=== PATIENT | male | born 2000 | race Caucasian/White ===

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

== ENCOUNTER → 2022-03-21 15:41 | Outpatient (CLI) | payer BC, SELFPAY ==
--- NOTE | ~2022-03-21 | XR_ITS ---
EXAMINATION: XR humerus LT, XR elbow LT min 3V, XR forearm LT 2V DATE: 03/21/2022 16:08 INDICATION: Left arm pain post falling hockey TECHNIQUE: 1. Internal and externally rotated views of the left humerus were obtained. 2. Anteroposterior, two oblique and lateral views of the left elbow were obtained. 3. Anteroposterior and lateral views of the left forearm were obtained. COMPARISON: None. FINDINGS: Alignment is normal from the left shoulder through the carpus the left hand. Subtle angulation of the cortex at the proximal left radial head neck junction suspicious for nondisplaced fracture. Joint sp aces are normal. No left elbow joint effusion. Soft tissues are unremarkable. IMPRESSION: 1. Likely nondisplaced extra articular fracture with subtle angulation of the cortex at the left radi al head neck junction. Reviewed, dictated and finalized at location A. IMPRESSION: 1. Likely nondisplaced extra articular fracture with subtle angulation of the c ortex at the left radial head neck junction. IMPRESSION: 1. Likely nondisplaced extra articular fracture with subtle angulation of the c ortex at the left radial head neck junction.
--- NOTE | ~2022-03-21 | XR_ITS ---
EXAMINATION: XR elbow RT min 3V DATE: 03/21/2022 16:08 INDICATION: Right elbow pain after falling on ice during hockey. TECHNIQUE: Anteroposterior, two oblique and lateral views of the right elbow were obtained. COMPARISON: Contralateral radiographs of the left elbow FINDINGS: Alignment is normal. Joint spaces are normal. As on the left there is subtle angulation of the cortex at the right radial head neck junction suspicious for nondisplaced fracture. No right elbow joint ef fusion. Soft tissues are unremarkable. IMPRESSION: 1. Suspicion for nondisplaced extra articular fracture at the right radial head neck junction where t here is subtle cortical angulation. Reviewed, dictated and finalized at location A. IMPRESSION: 1. Suspicion for nondisplaced extra articular fracture at the right radial head neck junction where there is subtle cortical angulation.
--- NOTE | ~2022-03-21 | XR_ITS ---
EXAMINATION: XR foot LT min 3V DATE: 03/21/2022 16:08 INDICATION: Left foot pain post injury TECHNIQUE: Dorsoplantar, two oblique and lateral views of the left foot were obtained. COMPARISON: None. FINDINGS: Alignment is normal. No fracture. Joint spaces are normal. Soft tissues are unremarkable. IMPRESSION: 1. Negative left foot radiographs. Reviewed, dictated and finalized at location A.
== END ==
PROVIDERS: PCP Nurse Practitioner Family; Visit Provider Nurse Practitioner Family
DX: M79.602 Pain in left arm (principal); M25.521 Pain in right elbow; R93.6 Abnormal findings on diagnostic imaging of limbs
CPT/HCPCS: 73060; 73080; 73090; 73630

== ENCOUNTER 2022-07-18 10:55 | Emergency (ER) | payer BC, SELFPAY ==
[2022-07-18 11:04] VITALS: BP 140/123; PULSE 99; RESP 18; TEMP 37.9; O2SAT 99
--- NOTE | 2022-07-18 11:04 | ED.URI ---
HPI - URI/Sore Throat General Chief Complaint: Upper Respiratory Infection Stated Complaint: sore throat, congestion,headache,bodyache Time Seen by Provider: 07/18/22 11:55 Source: patient and RN notes reviewed Mode of arrival: ambulatory Limitations: no limitations History of Present Illness HPI Narrative: 21-year-old male presents with concern for body aches, head congestion, headache, cough, back pain from coughing that started yesterday. He reports history of asthma, he just refilled his inhalers. He has not felt the need to use his inhaler. He denies taking any other [id number] medications MD elicited complaint: cough, rhinorrhea and nasal congestion Related Data Allergies Allergy/AdvReac Type Severity Reaction Status Date / Time Penicillins Allergy Unknown HIVES Verified 07/18/22 11:10 Review of Systems Review of Systems: CONSTITUTIONAL: Reports malaise, possible fever. EYES: Denies visual changes, redness, or discharge. ENT: Reports rhinorrhea, congestion, sinus pain. Denies otalgia and sore throat. CARDIOVASCULAR: Denies chest pain, palpitations, or edema. RESPIRATORY: Reports cough. Denies dyspnea. GASTROINTESTINAL: Denies abdominal pain, nausea, vomiting, diarrhea SKIN: Denies rash or itching. MUSCULOSKELETAL: Reports myalgia. NEUROLOGIC: Reports headache. All systems reviewed & are unremarkable except as noted in HPI and below PMFSH Past Medical History Medical History (Updated 07/18/22 @ 12:11 by Lachelle Oviedo NP) Asthma Clostridioides difficile infection At the age of 15 related to antibiotics Finger fracture, left Phone Fracture of elbow, closed Left Fracture of phalanx of right little finger History of torn meniscus of right knee Surgical History Surgical History History of colonoscopy History of endoscopy History of right knee surgery Due to torn meniscus-03/2019 Hx of myringotomy Family History Family History Father Elevated cholesterol Other Hypertension Social History Social History Smoking status: Never smoker Tobacco type: cigarettes Second hand tobacco smoke exposure: No Alcohol intake: never Substance use: never Living arrangements: with family Additional living arrangements comments: Parent Occupation/Education: student Gender identity (if verbalized by the patient): Male Sexual Orientation (if Verbalized by the Patient): Straight or Heterosexual Comments At time of signature, agree with nursing past medical, surgical, social and family history. There is no relevant family history pertinent to the presenting complaint Exam Narrative: GENERAL: Well-appearing, well-nourished, and in no acute distress. HEAD: Normocephalic EYES: PERRLA, conjunctivae clear ENT: Nares clear, turbinates edematous and erythematous, clear discharge. Mucous membranes moist. TM pearly carlos with dull light reflex bilaterally; no tragal tenderness. Oropharynx not erythematous without lesions. Tonsils not enlarged and without exudate, no drooling, no hoarseness, no trismus, uvula midline. NECK: Supple. No lymphadenopathy CHEST: Clear to auscultation, breath sounds equal. No wheezing, rhonchi, rales, or stridor. No respiratory distress, speaks in full sentences. HEART: Regular rate and rhythm. No murmur heard. SKIN: Warm, dry, no rash. NEURO: Alert and oriented x3. PSYCH: Normal mood and affect Course Course Emergency Course: Patient is aware of diagnosis, understands and agrees to treatment plan. Anticipatory guidance given. Patient agrees to follow-up as directed and is aware of reasons to seek care at the emergency department. Portions of this record may have been created with voice recognition software Level of Care: Express Care Visit Vital Signs Vital signs: Reviewed. MDM - URI/Sore Throat MDM
[2022-07-18 12:00] VITALS: BP 110/86
== END 2022-07-18 12:17 | disposition home or self-care (01) ==
PROVIDERS: Emergency Provider Nurse Practitioner; PCP Family Medicine
DX: J06.9 Acute upper respiratory infection, unspecified (principal); Z20.822 Contact with and (suspected) exposure to COVID-19; J45.909 Unspecified asthma, uncomplicated
CPT/HCPCS: 87081; 87426; 87804; 87880; 99213; C9803; G0463

== ENCOUNTER 2023-03-04 18:16 | Emergency (ER) | payer BC, SELFPAY ==
--- NOTE | 2023-03-04 18:27 | ED.URI ---
HPI - URI/Sore Throat General Chief Complaint: Upper Respiratory Infection Stated Complaint: Bodyaches Time Seen by Provider: 03/04/23 18:27 Source: patient Mode of arrival: ambulatory Limitations: no limitations History of Present Illness HPI Narrative: 22-year-old male presents with mom with complaint of headache, body aches, severe fatigue for the past 3 days. Patient reports that he has been sleeping and has not getting been able to get out of bed. Afebrile. Took 1 dose of Tylenol yesterday to treat his body aches. Has not taken any medication today to treat his symptoms. Denies nausea vomiting diarrhea. Denies sore throat. No cough. All systems reviewed and negative except as noted above. Related Data Home Medications Medication Instructions Recorded Confirmed No Home Medications 03/04/23 03/04/23 Allergies Allergy/AdvReac Type Severity Reaction Status Date / Time Penicillins Allergy Unknown HIVES Verified 03/04/23 18:23 Review of Systems Review of Systems: CONSTITUTIONAL: Denies fever, chills, or sweats. Reports fatigue. EYES: Denies visual changes, redness, or discharge. ENT: Denies rhinorrhea, congestion, sore throat, or otalgia. CARDIOVASCULAR: Denies chest pain, palpitations, or edema. RESPIRATORY: Denies cough or dyspnea. GASTROINTESTINAL: Denies abdominal pain, nausea, vomiting, or diarrhea. GENITOURINARY: Denies dysuria or hematuria. SKIN: Denies rash or itching. MUSCULOSKELETAL: Denies back pain, joint pain. Reports myalgia. NEUROLOGIC: Reports headache. Denies numbness, or weakness. PSYCHIATRIC: Denies anxiety or depression. All other systems reviewed are negative, except as documented in HPI. [facility] Past Medical History Medical History Asthma Clostridioides difficile infection At the age of 15 related to antibiotics Finger fracture, left Phone Fracture of elbow, closed Left Fracture of phalanx of right little finger History of torn meniscus of right knee Surgical History Surgical History History of colonoscopy History of endoscopy History of right knee surgery Due to torn meniscus-03/2019 Hx of myringotomy Family History Family History Father Elevated cholesterol Other Hypertension Social History Social History Smoking status: Never smoker Tobacco type: cigarettes Second hand tobacco smoke exposure: No Alcohol intake: never Substance use: never Living arrangements: with family Additional living arrangements comments: Parent Occupation/Education: student Gender identity (if verbalized by the patient): Male Sexual Orientation (if Verbalized by the Patient): Straight or Heterosexual Comments At time of signature, agree with nursing past medical, surgical, social and family history. There is no relevant family history pertinent to the presenting complaint. Exam Narrative: GENERAL: This is a well-nourished, well-developed patient, patient ill-appearing but in no acute distress. HEAD: normocephalic, atraumatic. EYES: PERRL. Sclera clear/white. Vision is grossly intact. EARS: External ears normal, auditory canals clear and without drainage, TMs normal without perforation. Hearing grossly intact. NOSE: External nose normal with no obvious nasal discharge, nares without redness, no rhinorrhea. THROAT: Mucous membranes moist, posterior pharynx clear. NECK: Neck supple, non-tender without lymphadenopathy, masses or thyromegaly. CARDIOVASCULAR: Regular rate and rhythm without murmurs, gallops, or rubs. RESPIRATORY: Clear to auscultation. Breath sounds equal bilaterally. No wheezes, rales, or rhonchi. SKIN: warm, Dry, intact with no suspicious lesions or rash, good texture and turgor. NEURO: awake, alert, and oriented to person, p
[2023-03-04 18:34] VITALS: BP 122/90; PULSE 125; RESP 16; TEMP 36.9; O2SAT 98
== END 2023-03-04 18:56 | disposition home or self-care (01) ==
PROVIDERS: Emergency Provider Nurse Practitioner Family; PCP Family Medicine
DX: J10.1 Influenza due to other identified influenza virus with other respiratory manifestations (principal); Z20.822 Contact with and (suspected) exposure to COVID-19; J45.909 Unspecified asthma, uncomplicated; Z86.19 Personal history of other infectious and parasitic diseases
CPT/HCPCS: 87426; 87804; 99213; C9803; G0463

== ENCOUNTER 2023-03-06 00:18 | Emergency (ER) | payer BC, SELFPAY ==
[2023-03-06 00:24] VITALS: BP 128/80; PULSE 93; RESP 18; TEMP 36.8; O2SAT 98
[2023-03-06] MEDS: FAMOTIDINE 20 MG/2 ML VIAL IV PUSH (00:58)
[2023-03-06] MEDS: ONDANSETRON INJ 4 MG/2 ML VIAL IV PUSH (00:59)
[2023-03-06] MEDS: SODIUM CHLORIDE 0.9% IV 1,000 ML 999 ML IV CONT (00:59)
[2023-03-06 01:06] LABS: Basophils Absolute Auto 0.1 K/mm3 (0.0-0.1); Basophils Percent Auto 1.4 % (0.2-1.2); Eosinophils Absolute Auto 0.1 K/mm3 (0-0.3); Hematocrit 45.2 % (42.0-52.0); Hemoglobin 15.7 g/dL (14.0-18.0); Immature Granulocyte Absolute 0.01 K/mm3 (0.00-0.031); Immature Granulocyte Percent A 0.3 % (0-0.5); Immature Platelet Fraction Pct 3.2 % (0.9-11.2); Lymphocytes Absolute Auto 1.02 K/mm3 (0.9-3.2); Lymphocytes Percent Auto 28.5 % (18.3-44.2); Mean Corpuscular HGB Conc 34.7 g/dl (32-36); Mean Corpuscular Volume 86.3 fl (80-100); Mean Platelet Volume 10.2 fl (7.4-10.4); Monocytes Absolute Auto 0.6 K/mm3 (0.1-0.6); Monocytes Percent Auto 16.5 % (2.6-8.5); Neutrophils Absolute Auto 1.8 K/mm3 (1.3-6.7); Neutrophils Percent Auto 51.3 % (45.5-73.1); Platelet Count Result 123 k/mm3 (150-375); Red Blood Count 5.24 M/mm3 (4.6-6.20); Red Cell Distribution Width 12.4 % (11.5-14.5); White Blood Count 3.6 K/mm3 (4.5-10.0)
[2023-03-06 01:13] LABS: Alanine Aminotransferase 57 U/L (6-50); Albumin Level 4.6 g/dL (3.5-5.1); Alkaline Phosphatase 87 U/L (38-126); Anion Gap 10 mmol/L (8-16); Aspartate Amino Transferase 56 U/L (17-59); Bilirubin,Total 0.8 mg/dL (0.2-1.3); Blood Urea Nitrogen 11 mg/dL (9-20); Carbon Dioxide 24 mmol/L (22-30); Chloride 100 mmol/L (98-107); Estimated CRCL calculation 143 ml/min; Estimated Glomerular Filt Rate > 60; Glucose 91 mg/dL (65-110); Potassium 3.7 mmol/L (3.4-5.0); Sodium 134 mmol/L (137-145)
--- NOTE | 2023-03-06 02:06 | ED.GENADULT ---
HPI - General Adult General Chief complaint: Unspecified Stated complaint: signs from dehydration, currently have flu A Time Seen by Provider: 03/06/23 00:32 History of Present Illness HPI narrative: Patient presents to the emergency department with his mom. He states he currently has influenza A. He is concerned that he is dehydrated. He has not felt like eating or drinking anything but a bottle of water today. He has had persistent vomiting for the past few days. Last night noticed small bits of blood in his emesis. He had a that he has had multiple episodes of vomiting a day for the past month. It happens mostly when he is at work. He has worked there for a long time but states it has been more stressful than normal recently. His mom says that he gets sick a lot, she is worried about his immune system. 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 Has not established continuity of care with his adult physician although has been to the office. Overall patient does not feel well Related Data Allergies Allergy/AdvReac Type Severity Reaction Status Date / Time Penicillins Allergy Unknown HIVES Verified 03/04/23 18:23 Review of Systems Review of Systems: Review of systems negative except what is documented in the HPI COUNT INCLUDES THE [facility] Past Medical History Medical History Asthma Clostridioides difficile infection At the age of 15 related to antibiotics Finger fracture, left Phone Fracture of elbow, closed Left Fracture of phalanx of right little finger History of torn meniscus of right knee Surgical History Surgical History History of colonoscopy History of endoscopy History of right knee surgery Due to torn meniscus-03/2019 Hx of myringotomy Family History Family History Father Elevated cholesterol Other Hypertension Social History Social History Smoking status: Never smoker Tobacco type: cigarettes Second hand tobacco smoke exposure: No Alcohol intake: never Substance use: never Living arrangements: with family Additional living arrangements comments: Parent Occupation/Education: student Gender identity (if verbalized by the patient): Male Sexual Orientation (if Verbalized by the Patient): Straight or Heterosexual Exam Narrative: GENERAL: Well-appearing, well-nourished, and in no acute distress. HEAD: Normocephalic, atraumatic. EYES: PERRLA and EOMI. ENT: Nares clear, no rhinorrhea or epistaxis. Mucous membranes moist. NECK: Supple. CHEST: Clear to auscultation. No respiratory distress. HEART: Regular rate and rhythm. ABDOMEN: Soft, nontender, nondistended. EXTREMITIES: Normal range of motion. No edema. SKIN: Warm, dry, no rash. NEURO: No focal deficits. Alert and oriented x3. PSYCH: Normal mood and affect. Course Course Emergency Course: Differential diagnosis includes but not limited to gastroenteritis, and flu Monday, dehydration Vital Signs Vital signs: Vital Signs Temperature 36.8 C 03/06/23 00:24 Pulse Rate 93 03/06/23 00:24 Respiratory Rate 18 03/06/23 00:24 Blood Pressure 128/80 03/06/23 00:24 Pulse Oximetry 98 03/06/23 00:24 Oxygen Delivery Room Air 03/06/23 00:24 Temperature 36.8 C 03/06/23 00:24 Pulse Rate 93 03/06/23 00:24 Respiratory Rate 18 03/06/23 00:24 Blood Pressure 128/80 03/06/23 00:24 Pulse Oximetry 98 03/06/23 00:24 Oxygen Delivery Room Air 03/06/23 00:24 Medical Decision Making MDM Narrative Medical decision making narrative: Upon reassessment of the patient he states that he has a headache. Overall feeling better though. He did not discuss the headache upon my initial evaluation. He says it is now much worse than when he
[2023-03-06] MEDS: ACETAMINOPHEN/BUTALBITAL/CAFFEINE 325-50-40 MG TABLET (FIORICET) 1 TAB PO (03:30)
[2023-03-06 04:28] VITALS: BP 140/66; PULSE 86; RESP 16; O2SAT 100
== END 2023-03-06 04:29 | disposition home or self-care (01) ==
PROVIDERS: Emergency Provider Emergency Medicine; PCP Family Medicine
DX: G44.89 Other headache syndrome (principal); R11.2 Nausea with vomiting, unspecified; J10.1 Influenza due to other identified influenza virus with other respiratory manifestations; J45.909 Unspecified asthma, uncomplicated
CPT/HCPCS: 36415; 80053; 85025; 85055; 96361; 96374; 96375; 99284; A9270; J2405; J7030

== ENCOUNTER 2023-03-19 08:54 | Emergency (ER) | payer BC, SELFPAY ==
[2023-03-19 09:00] VITALS: BP 127/84; PULSE 127; RESP 16; TEMP 36.6; O2SAT 99
--- NOTE | 2023-03-19 09:21 | ED.URI ---
HPI - URI/Sore Throat General Chief Complaint: Upper Respiratory Infection Stated Complaint: Sore Throat Time Seen by Provider: 03/19/23 09:29 Source: patient and RN notes reviewed Mode of arrival: ambulatory Limitations: no limitations History of Present Illness HPI Narrative: 22-year-old male presents with concern for ongoing illness after being diagnosed with influenza on March 03. Reports he has now has a sore throat, has left ear pain, his continued to have sinus congestion and nasal drainage. Reports facial pain and headache. Reports general malaise. He does not have a fever. MD elicited complaint: sore throat and nasal congestion Related Data Allergies Allergy/AdvReac Type Severity Reaction Status Date / Time Penicillins Allergy Unknown HIVES Verified 03/19/23 09:24 Review of Systems Review of Systems: CONSTITUTIONAL: Reports malaise, fatigue. Denies chills, sweats, or fever. EYES: Denies visual changes, redness, or discharge. ENT: Reports rhinorrhea, congestion, sinus pain, otalgia and sore throat. CARDIOVASCULAR: Denies chest pain, palpitations, or edema. RESPIRATORY: Reports occasional cough. Denies dyspnea. GASTROINTESTINAL: Denies abdominal pain, vomiting, diarrhea. Reports nausea MUSCULOSKELETAL: Reports myalgia. NEUROLOGIC: Reports headache. All systems reviewed & are unremarkable except as noted in HPI and below PMFSH Past Medical History Medical History Asthma Clostridioides difficile infection At the age of 15 related to antibiotics Finger fracture, left Phone Fracture of elbow, closed Left Fracture of phalanx of right little finger History of torn meniscus of right knee Surgical History Surgical History History of colonoscopy History of endoscopy History of right knee surgery Due to torn meniscus-03/2019 Hx of myringotomy Family History Family History Father Elevated cholesterol Other Hypertension Social History Social History Smoking status: Never smoker Tobacco type: cigarettes Second hand tobacco smoke exposure: No Alcohol intake: never Substance use: never Living arrangements: with family Additional living arrangements comments: Parent Occupation/Education: student Gender identity (if verbalized by the patient): Male Sexual Orientation (if Verbalized by the Patient): Straight or Heterosexual Comments At time of signature, agree with nursing past medical, surgical, social and family history. There is no relevant family history pertinent to the presenting complaint Exam Narrative: GENERAL: Nontoxic-appearing and in no acute distress. HEAD: Normocephalic EYES: PERRLA, conjunctivae clear ENT: Nares clear, turbinates edematous and erythematous. Mucous membranes moist. TM pearly carlos with dull light reflex bilaterally; no tragal tenderness. Oropharynx not erythematous without lesions. Tonsils not enlarged and without exudate, no drooling, no hoarseness, no trismus, uvula midline. NECK: Supple. No lymphadenopathy CHEST: Clear to auscultation, breath sounds equal. No wheezing, rhonchi, rales, or stridor. No respiratory distress, speaks in full sentences. HEART: Regular rate and rhythm. No murmur heard. SKIN: Warm, dry, no rash. NEURO: Alert and oriented x3. PSYCH: Normal mood and affect Course Course Emergency Course: Patient is aware of diagnosis, understands and agrees to treatment plan. Anticipatory guidance given. Patient agrees to follow-up as directed and is aware of reasons to seek care at the emergency department. Portions of this record may have been created with voice recognition software Level of Care: Express Care Visit Vital Signs Vital signs: Vital Signs Temperature 97.8 F 03/19/23 09:
== END 2023-03-19 09:57 | disposition home or self-care (01) ==
PROVIDERS: Emergency Provider Nurse Practitioner; PCP Family Medicine
DX: B27.90 Infectious mononucleosis, unspecified without complication (principal); Z20.822 Contact with and (suspected) exposure to COVID-19
CPT/HCPCS: 36416; 86308; 87081; 87426; 87880; 99213; C9803; G0463

== ENCOUNTER → 2023-05-02 14:16 | Outpatient (CLI) | payer BC, SELFPAY ==
--- NOTE | ~2023-05-02 | MR_ITS ---
EXAMINATION: MR brain/brain stem wo con DATE: 05/02/2023 14:47 INDICATION: Posttraumatic headache, unspecified. TECHNIQUE: Magnetic resonance imaging (MRI) of the brain and brainstem was performed without intraven ous contrast. COMPARISON: None. FINDINGS: There is no intracranial hemorrhage, acute infarction, or abnormal intracranial mass lesion . The ventricles are normal in size. There is mild mucosal thickening in the paranasal sinuses. The o rbits are normal. The mastoid air cells are normal. IMPRESSION: 1. Normal brain. Reviewed, dictated and finalized at location A. AINABLE DESIGN COORDINATOR IMPRESSION: 1. Normal brain.
== END ==
PROVIDERS: PCP Physician Assistant; Visit Provider Physician Assistant
DX: G44.309 Post-traumatic headache, unspecified, not intractable (principal)
CPT/HCPCS: 70551

== ENCOUNTER 2023-07-24 13:12 | Emergency (ER) | payer BC, SELFPAY ==
--- NOTE | ~2023-07-24 | XR_ITS ---
EXAMINATION: XR foot RT min 3V, XR ankle RT min 3V DATE: 07/24/2023 13:44 INDICATION: Right foot and ankle pain and swelling post injury TECHNIQUE: 1. Anteroposterior, mortise, additional oblique and lateral view of the right ankle were obtained. 2. Dorsoplantar, two oblique and lateral views of the right foot were obtained. COMPARISON: None. FINDINGS: Alignment of the foot and ankle is normal. No acute fracture. Tiny chronic appearing ossicle at the t ip of the medial malleolus without evident donor site likely sequela of chronic trauma. Joint spaces are well maintained. No ankle joint effusion. There is prominent soft tissue swelling about the later al malleolus with mild soft tissue swelling throughout the remainder of the ankle. IMPRESSION: 1. No acute osseous abnormality at the right foot or ankle. Reviewed, dictated and finalized at location A. DEVELOPER IMPRESSION: 1. No acute osseous abnormality at the right foot or ankle.
[2023-07-24 13:20] VITALS: BP 122/67; PULSE 97; RESP 16; TEMP 36.8; O2SAT 98
--- NOTE | 2023-07-24 13:51 | ED.LOWEXIN ---
HPI - Extremity Injury (Lower) General Chief Complaint: Extremity Injury, Lower Stated Complaint: Right ankle injury Time Seen by Provider: 07/24/23 13:35 Source: patient and RN notes reviewed Mode of arrival: ambulatory (with crutches) Limitations: no limitations History of Present Illness HPI Narrative: Patient presents today with a right ankle injury. He was playing basketball yesterday and came down from a jump, twisting his right ankle. He has been ambulatory with crutches since the injury. Reports some tingling on the bottom foot. Currently rates his pain 08/26 and has been using some ice, but no medication for pain and swelling. Patient drove here with his injured foot/ankle Related Data Home Medications Medication Instructions Recorded Confirmed No Home Medications 07/24/23 07/24/23 Allergies Allergy/AdvReac Type Severity Reaction Status Date / Time Penicillins Allergy Unknown HIVES Verified 05/16/23 14:30 Review of Systems Review of Systems: CONSTITUTIONAL: Denies body aches, fever, chills, or sweats. EYES: Denies visual changes, redness, or discharge. ENT: Denies rhinorrhea, congestion, sore throat, or otalgia. CARDIOVASCULAR: Denies chest pain, palpitations, or edema. RESPIRATORY: Denies cough or dyspnea. GASTROINTESTINAL: Denies abdominal pain, nausea, vomiting, or diarrhea. GENITOURINARY: Denies dysuria or hematuria. SKIN: Denies rash, itching, or wounds. MUSCULOSKELETAL: Denies back pain, or myalgia.+ right ankle injury NEUROLOGIC: Denies headache, numbness, or weakness. + tingling PSYCH: Denies depression or anxiety. [facility] Past Medical History Medical History Asthma Clostridioides difficile infection At the age of 15 related to antibiotics Finger fracture, left Phone Fracture of elbow, closed Left Fracture of phalanx of right little finger History of torn meniscus of right knee Surgical History Surgical History History of colonoscopy History of endoscopy History of right knee surgery Due to torn meniscus-03/2019 Hx of myringotomy Family History Family History Father Elevated cholesterol Other Hypertension Social History Social History Smoking status: Never smoker Tobacco type: cigarettes Second hand tobacco smoke exposure: No Alcohol intake: never Substance use: never Living arrangements: with family Additional living arrangements comments: Parent Occupation/Education: student Gender identity (if verbalized by the patient): Male Sexual Orientation (if Verbalized by the Patient): Straight or Heterosexual Comments At time of signature, I have reviewed and agree with nursing past medical, surgical, social and family history unless otherwise noted. Please see nursing chart for further information. There is no relevant family history pertinent to the presenting complaint Exam Narrative: GENERAL: Well-appearing, well-nourished, and in no acute distress. HEAD: Normocephalic, atraumatic. EYES: EOMI. No redness or drainage. Conjunctivae normal. ENT: Mucous membranes pink and moist. . NECK: Normal AROM. CHEST: No respiratory distress. EXTREMITIES: Right foot and ankle: Moderate swelling about the ankle. Tenderness to the medial portion, lateral portion, and anterior portion of the ankle. No tenderness to the foot. Color normal. Distal sensation intact. Capillary refill. Pedal pulse normal. Full range of motion of the toes. Decreased range of motion of the ankle due to pain and swelling. SKIN: Warm, dry, no rash. Capillary refill normal. Normal skin turgor. NEURO: No focal deficits. Alert and oriented x3. Gait steady. PSYCH: Normal affect. No signs of depression or anxiety. Course Course
== END 2023-07-24 14:10 | disposition home or self-care (01) ==
PROVIDERS: Emergency Provider Nurse Practitioner; PCP Family Medicine
DX: S93.401A Sprain of unspecified ligament of right ankle, initial encounter (principal); X50.9XXA Other and unspecified overexertion or strenuous movements or postures, initial encounter; Y93.67 Activity, basketball; J45.909 Unspecified asthma, uncomplicated
CPT/HCPCS: 73610; 73630; 99213; G0463

== ENCOUNTER 2023-08-19 21:40 | Emergency (ER) | payer BC, SELFPAY ==
--- NOTE | ~2023-08-19 | XR_ITS ---
EXAMINATION: XR chest 1V portable DATE: 08/19/2023 23:16 INDICATION: Near syncope. TECHNIQUE: A single frontal view of the chest was obtained on 2 radiographs. COMPARISON: Chest 2 views 06/04/2018 FINDINGS: There is no pneumonia, pleural effusion, or pneumothorax. The heart size is normal. IMPRESSION: 1. No acute cardiopulmonary disease. Reviewed, dictated and finalized at location A. STERED NURSE MATERNITY
[2023-08-19 21:52] VITALS: BP 125/64; PULSE 74; RESP 16; TEMP 36.9; O2SAT 100
[2023-08-19 22:06] VITALS: PULSE 73; O2SAT 99
[2023-08-19 22:31] VITALS: BP 110/62; PULSE 66; RESP 20; O2SAT 99
[2023-08-19 23:00] VITALS: PULSE 66; RESP 12; O2SAT 99
[2023-08-19 23:01] VITALS: BP 107/63; PULSE 70; RESP 14; O2SAT 100
--- NOTE | 2023-08-19 23:06 | ECG_ITS ---
Measurements Intervals [place] Rate: 58 P: 43 [place]: 151 QRS: 31 QRSD: 93 T: 30 QT: 393 QTc: 387 Interpretive Statements SINUS BRADYCARDIA INCOMPLETE RIGHT BUNDLE BRANCH BLOCK BASELINE ARTIFACT- V3 BORDERLINE ECG NO PREVIOUS ECG AVAILABLE FOR COMPARISON Electronically Signed On 08-20-2023 7:03:53 MONOGRAM OPERATOR by Jamel Weems D.O.
--- NOTE | 2023-08-19 23:11 | ED.GENADULT ---
[facility] - General Adult General Chief complaint: Seizure Stated complaint: seizure 10 minutes ago Time Seen by Provider: 08/19/23 22:29 Source: patient Mode of arrival: ambulatory Limitations: no limitations History of Present Illness HPI narrative: This is a 22-year-old male who presents to the ED with chief complaint of possible seizure today. He reports that while in his house he had an episode where he went down to the ground shaking. He states that he stood up from his bed after not eating 7 hours to go to the kitchen to get something to eat. He felt his vision started to get blurry when he stood up he started to feel a little shaky. Reports that he had grabbed the wall and then went down to the floor and felt like he was still shaking. He states he remembers the entire event. He thinks he was on the ground for no more than 15 seconds. Denies any urinary incontinence. Denies any head injury. Denies numbness, weakness, confusion, speech change, vision change. He feels back to normal now. Related Data Home Medications Medication Instructions Recorded Confirmed No Home Medications 07/24/23 07/26/23 Allergies Allergy/AdvReac Type Severity Reaction Status Date / Time Penicillins Allergy Unknown HIVES Verified 08/19/23 22:08 Review of Systems Review of Systems: All systems as dictated in [facility] Past Medical History Medical History Asthma Clostridioides difficile infection At the age of 15 related to antibiotics Finger fracture, left Phone Fracture of elbow, closed Left Fracture of phalanx of right little finger History of torn meniscus of right knee Surgical History Surgical History History of colonoscopy History of endoscopy History of right knee surgery Due to torn meniscus-03/2019 Hx of myringotomy Family History Family History Father Elevated cholesterol Other Hypertension Social History Social History Smoking status: Never smoker Tobacco type: cigarettes Second hand tobacco smoke exposure: No Alcohol intake: never Substance use: never Do You Feel Safe in your Home?: Yes Lack of Transportation: No Lack of Food: Never True Current Housing: I Have Housing Concerned About Future Housing: No Difficulty Paying Gas/Electric Bills: No Difficulty Paying for Meds: No Currently Unemployed: No Education: High School Diploma/GED Difficulty w/ Childcare or Family Care: No Living arrangements: with family Additional living arrangements comments: Parent Occupation/Education: student Gender identity (if verbalized by the patient): Male Sexual Orientation (if Verbalized by the Patient): Straight or Heterosexual Exam Narrative: GENERAL: Well-appearing, well-nourished, and in no acute distress. Pleasant and conversational HEAD: Normocephalic, atraumatic. EYES: PERRLA and EOMI. ENT: Nares clear, no rhinorrhea or epistaxis. Mucous membranes moist. Oropharynx without tonsillar hypertrophy exudate or other lesions. NECK: Supple. No adenopathy or masses. CHEST: No respiratory distress. Clear to auscultation. No wheezes rales or rhonchi HEART: Regular rate and rhythm. No murmur heard. Normal peripheral pulses. ABDOMEN: Soft, nontender, nondistended, normal active bowel sounds. MSK: Normal range of motion. No edema. SKIN: Warm, dry, no rash. NEURO: Alert and oriented x3. No focal deficits. PSYCH: Normal mood and affect. Course Vital Signs Vital signs: Vital Signs Temperature 98.4 F 08/19/23 21:52 Pulse Rate 74 08/19/23 21:52 Respiratory Rate 16 08/19/23 21:52 Blood Pressure 125/64 08/19/23 21:52 Pulse Oximetry 100 08/19/23 21:52 Temperature 98.4 F 08/19/23 21:52 Pulse Rate 66 0
[2023-08-19 23:31] VITALS: BP 111/61; PULSE 62; RESP 18; O2SAT 98
[2023-08-20 00:07] LABS: Glucose Point of Care 81 mg/dl (65-105)
[2023-08-20 00:27] VITALS: BP 112/72; PULSE 66; RESP 16; O2SAT 100
== END 2023-08-20 00:28 | disposition home or self-care (01) ==
PROVIDERS: Emergency Provider Physician Assistant; PCP Family Medicine
DX: R55 Syncope and collapse (principal); J45.909 Unspecified asthma, uncomplicated; R00.1 Bradycardia, unspecified; I45.10 Unspecified right bundle-branch block
CPT/HCPCS: 71045; 82948; 93005; 99284

== ENCOUNTER 2023-10-03 11:27 | Outpatient (CLI) | payer BC, SELFPAY ==
--- NOTE | ~2023-10-03 | XR_ITS ---
EXAMINATION: XR finger 1st LT min 2V DATE: 10/03/2023 11:40 INDICATION: Pain at the left thumb TECHNIQUE: Dorsal palmar, lateral and 2 oblique views of the left first digit were obtained COMPARISON: None FINDINGS: Alignment is normal. No fracture. Joint spaces are normal. Soft tissues are unremarkable. IMPRESSION: 1. Negative left thumb radiographs. Reviewed, dictated and finalized at location A.
== END 2023-10-03 11:28 ==
LOC: MICIMG 11:29
PROVIDERS: PCP Physician Assistant; Visit Provider Physician Assistant
DX: M79.645 Pain in left finger(s) (principal); S69.92XA Unspecified injury of left wrist, hand and finger(s), initial encounter; X58.XXXA Exposure to other specified factors, initial encounter
CPT/HCPCS: 73140

== ENCOUNTER 2023-10-19 00:59 | Emergency (ER) | payer BC, SELFPAY ==
[2023-10-19 01:00] VITALS: BP 117/55; PULSE 68; RESP 16; TEMP 36.4; O2SAT 100
--- NOTE | 2023-10-19 01:28 | ED.NAVMDI ---
HPI - Nausea/Vomiting/Diarrhea General Chief complaint: Nausea/Vomiting/Diarrhea Stated complaint: headache, N/V Time Seen by Provider: 10/19/23 01:17 History of Present Illness HPI Narrative: 23-year-old male with history of asthma, migraines, s/p appendectomy presents to emergency department for a migraine with nausea and vomiting started this evening. Patient states he did started developing a frontal headache around 5:00 p.m., 5 hours later began having nausea and vomiting which prompted him to come to the ER. He presents with his mother at bedside. States he is prescribed Fioricet for migraines but recently ran out. States his PCP refilled his script but he has yet to pick it up from the pharmacy. He denies known fever but does state he had some chills and sweats while vomiting. Denies cough or congestion, sore throat or otalgia, neck pain, recent head injury trauma, vision changes or focal numbness or weakness. Related Data Allergies Allergy/AdvReac Type Severity Reaction Status Date / Time Penicillins Allergy Unknown HIVES Verified 10/03/23 10:46 Review of Systems Review of Systems: CONSTITUTIONAL: Denies fever, chills, or sweats. EYES: Denies visual changes, redness, or discharge. ENT: Denies rhinorrhea, congestion, sore throat, or otalgia. CARDIOVASCULAR: Denies chest pain, palpitations, or edema. RESPIRATORY: Denies cough or dyspnea. GASTROINTESTINAL: Denies abdominal pain, nausea, vomiting, or diarrhea. GENITOURINARY: Denies dysuria or hematuria. SKIN: Denies rash or itching. MUSCULOSKELETAL: Denies back pain, joint pain, or myalgia. NEUROLOGIC: See HPI PSYCHIATRIC: Denies anxiety or depression. [facility] Past Medical History Medical History Asthma Clostridioides difficile infection At the age of 15 related to antibiotics Finger fracture, left Phone Fracture of elbow, closed Left Fracture of phalanx of right little finger History of torn meniscus of right knee Surgical History Surgical History History of colonoscopy History of endoscopy History of right knee surgery Due to torn meniscus-03/2019 Hx of myringotomy Family History Family History Father Elevated cholesterol Other Hypertension Social History Social History Smoking status: Never smoker Tobacco type: cigarettes Second hand tobacco smoke exposure: No Alcohol intake: never Substance use: never Do You Feel Safe in your Home?: Yes Lack of Transportation: No Lack of Food: Never True Current Housing: I Have Housing Concerned About Future Housing: No Difficulty Paying Gas/Electric Bills: No Difficulty Paying for Meds: No Currently Unemployed: No Education: High School Diploma/GED Difficulty w/ Childcare or Family Care: No Living arrangements: with family Additional living arrangements comments: Parent Occupation/Education: student Gender identity (if verbalized by the patient): Male Sexual Orientation (if Verbalized by the Patient): Straight or Heterosexual Exam Narrative: GENERAL: Well-appearing, well-nourished, and in no acute distress. HEAD: Normocephalic, atraumatic. EYES: PERRLA and EOMI. ENT: Nares clear, no rhinorrhea or epistaxis. Mucous membranes moist. NECK: Supple. No nuchal rigidity or signs of meningismus CHEST: Clear to auscultation. No respiratory distress. HEART: Regular rate and rhythm. No murmur heard. Normal peripheral pulses. ABDOMEN: Soft, nontender, nondistended, normal active bowel sounds. EXTREMITIES: Normal range of motion. No edema. SKIN: Warm, dry, no rash. NEURO: No focal deficits. Alert and oriented x3. Cranial nerves 2-12 intact. Strength 5/5 in BUE and BLE. Sensation intact throughout. Normal [id number]. No pronator drift.
[2023-10-19 01:33] LABS: Basophils Absolute Auto 0.1 K/mm3 (0.0-0.1); Basophils Percent Auto 0.5 % (0.2-1.2); Eosinophils Percent Auto 0.3 % (0-4.4); Hematocrit 43.1 % (42.0-52.0); Hemoglobin 14.2 g/dL (14.0-18.0); Immature Granulocyte Absolute 0.02 K/mm3 (0.00-0.031); Immature Granulocyte Percent A 0.2 % (0-0.5); Lymphocytes Absolute Auto 1.44 K/mm3 (0.9-3.2); Mean Corpuscular HGB Conc 32.9 g/dl (32-36); Mean Corpuscular Hemoglobin 29.9 pg (26-34); Mean Corpuscular Volume 90.7 fl (80-100); Mean Platelet Volume 10.3 fl (7.4-10.4); Monocytes Absolute Auto 0.7 K/mm3 (0.1-0.6); Monocytes Percent Auto 6.7 % (2.6-8.5); Neutrophils Absolute Auto 8.1 K/mm3 (1.3-6.7); Neutrophils Percent Auto 78.3 % (45.5-73.1); Platelet Count Result 231 k/mm3 (150-375); Red Blood Count 4.75 M/mm3 (4.6-6.20); Red Cell Distribution Width 13.1 % (11.5-14.5); White Blood Count 10.3 K/mm3 (4.5-10.0)
[2023-10-19 01:34] LABS: Appearance Urine Clear (Clear); Bilirubin Urine Negative (Negative); Blood Urine Negative (Negative); Color Urine Yellow (Yellow); Glucose Urine UA Negative (Negative); Ketones Urine 2+ mg/dL (Negative); Leukocyte Esterase Ur Negative LEU/UL (Negative); Nitrate Urine Negative (Negative); Protein Urine Negative (Negative); Specific Grav Ur 1.025 (1.001-1.035); Urobilinogen Urine 0.2 mg/dL (<2.0)
[2023-10-19] MEDS: PROCHLORPERAZINE EDISYLATE 10 MG/2 ML VIAL IV PUSH (01:36)
[2023-10-19] MEDS: SODIUM CHLORIDE 0.9% IV 1,000 ML 999 ML IV CONT (01:36)
[2023-10-19] MEDS: KETOROLAC 15 MG/ML VIAL (*BKC) IV PUSH (01:36)
[2023-10-19] MEDS: diphenhydrAMINE HCl INJ 50 MG/ML VIAL 25 MG IV PUSH (01:36)
[2023-10-19 01:41] LABS: Add Urine Microscopic? YES
[2023-10-19 01:43] LABS: Alanine Aminotransferase 17 U/L (6-50); Alkaline Phosphatase 103 U/L (38-126); Anion Gap 8 mmol/L (4-12); Aspartate Amino Transferase 35 U/L (17-59); Bilirubin,Total 0.7 mg/dL (0.2-1.3); Blood Urea Nitrogen 19 mg/dL (9-20); Calcium 9.5 mg/dL (8.4-10.2); Carbon Dioxide 26 mmol/L (22-30); Chloride 105 mmol/L (98-107); Estimated CRCL calculation 95 ml/min; Estimated Glomerular Filt Rate > 60; Glucose 99 mg/dL (65-110); Lipase 57 U/L (23-300); Potassium 4.2 mmol/L (3.4-5.0); Sodium 139 mmol/L (137-145)
[2023-10-19 02:31] VITALS: BP 114/55; PULSE 69; RESP 17; O2SAT 100
== END 2023-10-19 02:32 | disposition home or self-care (01) ==
PROVIDERS: Emergency Medicine; Emergency Provider Physician Assistant; PCP Physician Assistant
DX: G44.201 Tension-type headache, unspecified, intractable (principal); J45.909 Unspecified asthma, uncomplicated
CPT/HCPCS: 36415; 80053; 81001; 83690; 83735; 85025; 96361; 96374; 96375; 99284; J0780; J1200; J1885; J7030